=== PATIENT | female | born 1960 | race Two or more races ===

== ENCOUNTER 2017-03-21 02:41 | Inpatient (IN) | payer MEDICAID ==
[~2017-03-21] VITALS: Ht 177.8 cm; Wt 131.6 kg
[2017-03-21] MEDS ORDERED: SODIUM CHLORIDE 0.9% 1,000 ML IV SCH ×2 (02:44→06:00)
[2017-03-21] MEDS ORDERED: HEPARIN 5,000 UNITS/ML, 1ML ONE (02:51)
[2017-03-21] MEDS ORDERED: FENTANYL PF 100 MCG/2ML IVPush PRN (03:00)
[2017-03-21] MEDS ORDERED: PLEASE ENTER ALLERGIES MC SCH ×2 (03:00)
[2017-03-21] MEDS ORDERED: METOPROLOL 1 MG/ML, 5ML ONE (03:00)
[2017-03-21] MEDS ORDERED: NITROGLYCERIN 0.4 MG BOTTLE (25 TABS) SL PRN ×2 (03:00→06:00)
[2017-03-21] MEDS ORDERED: METOPROLOL 1 MG/ML, 5ML IVPush PRN (03:00)
[2017-03-21] MEDS ORDERED: ATORVASTATIN 80 MG TABLET PO ONE (03:00)
[2017-03-21] MEDS ORDERED: HEPARIN 5,000 UNITS/ML, 1ML IVPush ONE (03:00)
[2017-03-21] MEDS ORDERED: VERAPAMIL 2.5 MG/ML, 2ML ONE (03:03)
[2017-03-21] MEDS ORDERED: FENTANYL PF 100 MCG/2ML ONE (03:03)
[2017-03-21] MEDS ORDERED: NITROGLYCERIN 5 MG/ML, 10ML ONE (03:03)
[2017-03-21] MEDS ORDERED: MIDAZOLAM 1 MG/ML, 5ML ONE (03:03)
[2017-03-21] MEDS ORDERED: HEPARIN 1,000 UNITS/ML, 10ML ONE (03:04)
[2017-03-21] MEDS ORDERED: BIVALIRUDIN 250 MG ONE ×2 (03:04→03:27)
[2017-03-21] MEDS ORDERED: LIDOCAINE 2%, 20ML ONE (03:04)
[2017-03-21] MEDS ORDERED: TICAGRELOR 90 MG TABLET ONE (03:04)
[2017-03-21 05:00] VITALS: BP 144/98
[2017-03-21 05:03] VITALS: BP 186/134
[2017-03-21] MEDS: NITROGLYCERIN 0.4 MG BOTTLE (25 TABS) SL PRN ×3 (05:45→16:02)
[2017-03-21 05:48] LABS: IS PT STATUS REG ER OR PRE ER? NO
[2017-03-21] MEDS ORDERED: ONDANSETRON 2MG/ML, 2ML IVPush PRN (06:00)
[2017-03-21] MEDS ORDERED: BISACODYL 10 MG SUPP PR PRN (06:00)
[2017-03-21] MEDS ORDERED: CARVEDILOL 3.125 MG TABLET PO SCH (06:00)
[2017-03-21] MEDS ORDERED: ZOLPIDEM 5MG TABLET PO PRN (06:00)
[2017-03-21] MEDS ORDERED: BISACODYL 5 MG EC TABLET PO PRN (06:00)
[2017-03-21] MEDS ORDERED: GUAIFENESIN/DM 200-20MG, 10ML UDC PO PRN (06:00)
[2017-03-21] MEDS ORDERED: morphine SULFATE 10 MG/ML, 1ML IVPush PRN ×2 (06:00)
[2017-03-21] MEDS: ASPIRIN 81 MG TABLET EC PO SCH (06:09)
[2017-03-21] MEDS: ENOXAPARIN 40 MG/0.4 ML SQ SCH (06:10)
[2017-03-21] MEDS ORDERED: ACETAMINOPHEN 325 MG TABLET PO PRN (06:30)
[2017-03-21] MEDS ORDERED: LISINOPRIL 5 MG TABLET PO SCH (09:00)
[2017-03-21] MEDS: TICAGRELOR 90 MG TABLET PO SCH ×2 (09:15→20:17)
[2017-03-21] MEDS: FAMOTIDINE 20 MG TABLET PO SCH ×2 (09:15→20:17)
[2017-03-21 11:30] LABS: IS PT STATUS REG ER OR PRE ER? NO
[2017-03-21] MEDS: CARVEDILOL 6.25 MG TABLET PO SCH (18:22)
[2017-03-21] MEDS: ATORVASTATIN 80 MG TABLET PO SCH (20:17)
[2017-03-22 04:10] VITALS: BP 129/63
[2017-03-22 05:24] LABS: BLOOD UREA NITROGEN 14 mg/dL (7-18)
[2017-03-22] MEDS: ENOXAPARIN 40 MG/0.4 ML SQ SCH (05:37)
[2017-03-22] MEDS: ASPIRIN 81 MG TABLET EC PO SCH (05:37)
[2017-03-22] MEDS: CARVEDILOL 6.25 MG TABLET PO SCH ×2 (05:38→20:16)
[2017-03-22] MEDS ORDERED: POTASSIUM CHLORIDE 20 MEQ TAB.ER.PRT PO ONE (07:00)
[2017-03-22] MEDS: FAMOTIDINE 20 MG TABLET PO SCH (09:13)
[2017-03-22] MEDS: TICAGRELOR 90 MG TABLET PO SCH ×2 (09:13→20:15)
[2017-03-22] MEDS: LISINOPRIL 5 MG TABLET PO SCH (12:10)
[2017-03-22 18:30] VITALS: BP 120/73
[2017-03-22 19:26] VITALS: BP 113/71
[2017-03-22] MEDS: ATORVASTATIN 80 MG TABLET PO SCH (20:15)
[2017-03-23 02:05] VITALS: BP 124/66
[2017-03-23] MEDS: ENOXAPARIN 40 MG/0.4 ML SQ SCH (06:22)
[2017-03-23] MEDS: CARVEDILOL 6.25 MG TABLET PO SCH ×2 (06:23→18:17)
[2017-03-23] MEDS: ASPIRIN 81 MG TABLET EC PO SCH (06:23)
[2017-03-23 06:51] LABS: BLOOD UREA NITROGEN 16 mg/dL (7-18)
[2017-03-23 08:11] VITALS: BP 117/62
[2017-03-23] MEDS: TICAGRELOR 90 MG TABLET PO SCH ×2 (08:32→20:35)
[2017-03-23] MEDS: LISINOPRIL 5 MG TABLET PO SCH (08:32)
[2017-03-23 10:06] LABS: HGB A1C 8.9 %Hb (.)
[2017-03-23] MEDS ORDERED: LOPERAMIDE 2 MG CAPSULE PO PRN (12:00)
[2017-03-23] MEDS ORDERED: POTASSIUM CHLORIDE 20 MEQ TAB.ER.PRT PO ONE (12:00)
[2017-03-23 14:00] VITALS: BP 123/43
[2017-03-23] MEDS: metFORMIN 500 MG TABLET PO SCH (18:17)
[2017-03-23] MEDS: INSULIN ASPART 100 UNITS/ML, PEN SQ-INSULIN SCH ×2 (18:18→20:35)
[2017-03-23 19:20] VITALS: BP 137/75
[2017-03-23] MEDS: ATORVASTATIN 80 MG TABLET PO SCH (20:35)
[2017-03-24 01:55] VITALS: BP 163/83
[2017-03-24] MEDS: CARVEDILOL 6.25 MG TABLET PO SCH (06:00)
[2017-03-24] MEDS: ASPIRIN 81 MG TABLET EC PO SCH (06:00)
[2017-03-24] MEDS: ENOXAPARIN 40 MG/0.4 ML SQ SCH (06:00)
[2017-03-24 06:43] VITALS: BP 97/63
[2017-03-24] MEDS: INSULIN ASPART 100 UNITS/ML, PEN SQ-INSULIN SCH (08:24)
[2017-03-24] MEDS: metFORMIN 500 MG TABLET PO SCH (08:25)
[2017-03-24] MEDS: TICAGRELOR 90 MG TABLET PO SCH (08:26)
[2017-03-24] MEDS: LISINOPRIL 5 MG TABLET PO SCH (08:26)
[2017-03-24] MEDS ORDERED: ASPI-621 PO (09:05)
[2017-03-24] MEDS ORDERED: CARV6.2512 PO (09:05)
[2017-03-24] MEDS ORDERED: ATOR80TA75 PO (09:05)
[2017-03-24] MEDS ORDERED: LISI5TAB7 PO (09:05)
[2017-03-24] MEDS ORDERED: METF500T PO (09:05)
[2017-03-24] MEDS ORDERED: NITR0.4T SL (09:05)
[2017-03-24] MEDS ORDERED: CLOP75TA22 PO (09:05)
[2017-03-24] MEDS ORDERED: TICA90TA PO (11:03)
== END 2017-03-24 11:40 | disposition home or self-care (01) | DRG 246 ==
LOC: ED 02:49 → EDIP 02:50 → ED 03:06 → CCU 04:32 → 5SO 03-22 18:23
PROVIDERS: ADMIT Internal Medicine; ATTEND Internal Medicine
PROC: 02C03ZZ Extirpation of Matter from Coronary Artery, One Artery, Percutaneous Approach (ICD-10-PCS; principal; 2017-03-21)
PROC: 027034Z Dilation of Coronary Artery, One Artery with Drug-eluting Intraluminal Device, Percutaneous Approach (ICD-10-PCS; 2017-03-21)
PROC: B2151ZZ Fluoroscopy of Left Heart using Low Osmolar Contrast (ICD-10-PCS; 2017-03-21)
PROC: B2111ZZ Fluoroscopy of Multiple Coronary Arteries using Low Osmolar Contrast (ICD-10-PCS; 2017-03-21)
DX: I21.02 ST elevation (STEMI) myocardial infarction involving left anterior descending coronary artery (principal); I50.21 Acute systolic (congestive) heart failure; F17.210 Nicotine dependence, cigarettes, uncomplicated; Z82.49 Family history of ischemic heart disease and other diseases of the circulatory system; I21.09 ST elevation (STEMI) myocardial infarction involving other coronary artery of anterior wall; E66.01 Morbid (severe) obesity due to excess calories; E11.65 Type 2 diabetes mellitus with hyperglycemia; I25.5 Ischemic cardiomyopathy; I25.10 Atherosclerotic heart disease of native coronary artery without angina pectoris; I11.0 Hypertensive heart disease with heart failure; F15.10 Other stimulant abuse, uncomplicated; E78.5 Hyperlipidemia, unspecified; Z79.899 Other long term (current) drug therapy; Z79.82 Long term (current) use of aspirin; D72.829 Elevated white blood cell count, unspecified
CPT/HCPCS: 36415; 71010; 80047; 80048; 80061; 82040; 82962; 83036; 83880; 84443; 84484; 85025; 85610; 85730; 87081; 87324; 93005; 93306; 96374; J0583; J1644; J1650; J1815; J2250; J3010; J3490; J2270; J7030